=== PATIENT | male | born 1960 | race Caucasian/White ===

== ENCOUNTER → 2020-06-28 16:23 | Outpatient (REF) | payer OTHER, SELFPAY | LOC: ANHLAB 16:23 | PROVIDERS: Visit Provider Nurse Practitioner | DX: C44.41 Basal cell carcinoma of skin of scalp and neck (principal) | CPT/HCPCS: 88305 ==

== ENCOUNTER → 2020-08-16 07:56 | Outpatient (REF) | payer OTHER, SELFPAY | LOC: ANHLAB 07:56 | PROVIDERS: Visit Provider Nurse Practitioner | DX: C44.41 Basal cell carcinoma of skin of scalp and neck (principal) | CPT/HCPCS: 88305; 88331 ==

== ENCOUNTER 2022-04-06 01:51 | Day surgery (SDC) | payer OTHER, SELFPAY ==
[2022-03-28 14:19] VITALS: BMI 30.3
--- NOTE | 2022-03-28 14:25 | PC.NURSE ---
Report to the Outpatient Waiting Room, entrance under the green pavilion located off [facility], at time 0600 on date 04/06/22. OR Time: 0730. Time changes happen often and if your time is changed the preop area will call you the afternoon before. - You and your visitor will be asked to self-screen and do not enter if you have any COVID symptoms. - Only one visitor and NO children visitors are allowed at this time. - The patient visitor is requested to leave or wait in car when not with patient due to restrictions. - A mask is required within the hospital. Patients may have clear liquids (water, carbonated beverages, clear teas, apple juice) until 3 hours prior to surgery with a maximum of 20 ounces. - No food from midnight until time of surgery Take the following medications with a SIP of water the morning of surgery: METOPROLOL Medications to discontinue per physician: VITAMINS Date to take last dose: 04/02/22 Please no make-up, nail armenian, hairspray, perfume, deodorant, or body powder the day of surgery. No jewelry (including any body piercings) or valuables the day of surgery, leave them at home. Please take a shower or bath the night before, or the morning of, surgery with an antibacterial soap. Wear comfortable, loose fitting clothing. - Jewelry must be removed prior to entering the operating room. Rings and piercings that are not removed may be cut off. - The hospital will not accept responsibility for valuables. - Please leave all valuables, including medications, at home the day of surgery. If you are going home after surgery, a licensed front end loader driver must drive you home. - NO public transportation without another adult. - We recommend that an adult stay with you for 24 hours following discharge. - We also recommend that you do not drive, make important decision, drink alcoholic beverages, or take any drugs that were not prescribed by your health care provider for at least 24 hours after your discharge time. Follow any additional instructions given to you from your surgeon. If you or anyone in your household have experienced Covid symptoms in the past week, please notify your surgeon or the nurse liaison at the phone number below for possible testing. Telephone instructions given to PT - GIRMA DANIELS and asked if any additional questions and then verbalized understanding. Patient advised to call surgeon office or pre surgery nurse liaison [phone] if any additional questions.
[2022-04-06 06:46] VITALS: BP 138/85; PULSE 62; RESP 16; TEMP 36.1; O2SAT 99
--- NOTE | 2022-04-06 06:52 | WPDANESEPPF ---
Anes - Initial Pre Proc Eval Procedure: Operation Date: 04/06/22 07:30 Proposed Procedures p Right Palmar Fasciectomy - Alejo Leon MD Date/Time: 04/06/22 06:52 Surgeon: Alejo Leon MD Pre Op Diagnosis: Dupuytren contractures rt 4th and 5th ray of palm Patient Data Age: 61 Gender: M Height: 1.85 m Weight: 114 kg Last Vital Signs Temp 36.1 C L 04/06/22 06:46 Pulse 62 04/06/22 06:46 Resp 16 04/06/22 06:46 BP 138/85 04/06/22 06:46 Pulse Ox 99 04/06/22 06:46 O2 Del Method Room Air 04/06/22 06:46 Allergies Allergy/AdvReac Type Severity Reaction Status Date / Time No Known Allergies Allergy Verified 04/06/22 06:23 Home Medications Medication Instructions Recorded Confirmed Type mecobalamin (vitamin B12) 1,000 1,000 mcg PO DAILY 07/25/21 04/06/22 History mcg chewable tablet simvastatin 20 mg PO HS 12/06/21 04/06/22 History aspirin 81 mg chewable tablet 81 mg PO DAILY 01/09/22 04/06/22 History lisinopril 20 mg tablet 20 mg PO DAILY #90 tabs 01/09/22 04/06/22 Rx omega-3 fatty acids [Fish Oil] 1 tablet PO DAILY 01/09/22 04/06/22 History metoprolol succinate 50 mg 50 mg PO DAILY #90 tabs 04/03/22 04/06/22 Rx tablet,extended release 24 hr Patient hx anesthesia problems: none Family hx anesthesia problems: none Results Review: All pre-operative results and documents have been reviewed as part of the pre-operative evaluation. [facility], [facility] Past Medical History Medical History B12 deficiency BMI 31.0-31.9,adult BMI 33.0-33.9,adult Colon cancer screening Dupuytrens contracture Elevated fasting glucose Encounter to establish care History of COVID-19 Hyperlipidemia Hypertension Wellness examination Surgical History Surgical History (Updated 04/06/22 @ 06:53 by Hunter Farnsworth MD) H/O colonoscopy Family History Family History Father Lung cancer Mother Cerebrovascular accident Sibling Heart disease Social History Social History Smoking status: Never smoker Alcohol intake: current Drinks per week: 8 Alcohol use details: BEER Substance use: never Substance use type: does not use Living arrangements: with family Spiritual care concerns: No Anes - Eval Final PreProcedure Day of Procedure 04/06/22 06:52 Patient weight: obese Heart: regular rate and rhythm Lungs: clear to auscultation Airway: Mallampati scale class II Neurological: alert and oriented Last oral intake: >/= 8 hours ASA classification: III Emergent: no Anesthetic plan: proceed Anesthesia type and monitoring: general GIVS and standard monitoring Results Review: All pre-operative results and documents have been reviewed as part of the pre-operative evaluation. Informed Consent: The patient's anesthetic plan and its attendant risks and benefits were discussed with the patient/family/POA. Questions were solicited and answers provided to the satisfaction of the patient/family/POA.
[2022-04-06] MEDS: LACTATED RINGERS 1,000 ML 30 ML IV CONT (06:53)
--- NOTE | 2022-04-06 07:11 | WPDHPUPDATE1 ---
History and Physical Update Update Date/Time: 04/06/22 07:11 History and Physical has been reviewed, including an updated exam of the patient. There are NO changes in the patient's condition. Risks, benefits, and alternatives have been discussed and questions answered. Patient agrees to proceed with procedure.
[2022-04-06 08:40] VITALS: BP 116/66; PULSE 61; RESP 16; O2SAT 96
[2022-04-06 09:10] VITALS: BP 143/84; PULSE 53; RESP 16
--- NOTE | 2022-04-06 15:17 | P.OP_ITS ---
Procedure Note - Detailed Date of Procedure 04/06/22 Pre-op Diagnosis Dupuytren contractures rt 4th and 5th ray of palm Post-op Diagnosis Same Procedure Performed Right partial palmar fasciectomy Surgeon Alejo Leon MD [employer] [facility] [place] Procedure The patient's right ulnar palm region was marked for the fasciectomy with his a consent in the holding area. He was taken to the operating room where he was placed supine on the operating table. A time-out was held and confirmed. He was given IV sedation. The extremity was prepped and draped in usual fashion. The site was marked for the incisions to be used. The area was widely infiltrated with 2% lidocaine with epinephrine. The extremity was exsanguinated with an Esmarch tourniquet. The tourniquet was inflated 250 mmHg. The incisions were made across the distal palmar crease with that back cut towards the proximal phalanx on the small finger. A nodule resided there. The skin flaps were elevated in all directions the common and digital nerves were identified to the small finger and the ring finger. The largest cord was to the small finger and this was exposed and isolated. It was cut proximally and pulled out with traction and blunt dissection for the most part to remove the entire mass. A similar dissection on a smaller scale was carried out just in the palm to the 4th ray there was no dissection into the finger on the 4th.. The metacarpophalangeal joint and proximal interphalangeal joints could be fully extended or passively hyperextended without difficulty. The tourniquet was released and the wound was closed with a running 4-0 nylon suture. A bulky bandage was applied some additiona 2% lidocaine with epinephrine was infiltrated in the wound area. Patient was discharged from the operating room in stable condition. A prescription for hydrocodone 5/325 6. Was sent to his pharmacy. Estimated Blood Loss 5 Drains No Packing No Pathology None sent Complications No immediate complications Condition Stable Disposition Same day
== END 2022-04-06 09:25 | disposition home or self-care (01) ==
PROVIDERS: PCP Nurse Practitioner Family; Visit Provider Plastic Surgery
PROC: (CPT 26045; principal; 2022-04-06 07:30)
DX: M72.0 Palmar fascial fibromatosis [Dupuytren] (principal); I10 Essential (primary) hypertension; E78.5 Hyperlipidemia, unspecified; E66.9 Obesity, unspecified; Z68.33 Body mass index [BMI] 33.0-33.9, adult; Z79.82 Long term (current) use of aspirin
CPT/HCPCS: 26121; A9270; J2704; J3010; J7120

== ENCOUNTER 2023-01-15 01:34 | Day surgery (SDC) | payer OTHER, SELFPAY ==
[2023-01-03 08:54] VITALS: BMI 32.0
--- NOTE | 2023-01-12 17:20 | P.PNAN_ITS ---
Anes - Eval Pre Procedure Procedure: Operation Date: 01/15/23 07:30 Proposed Procedures p Screening Colonoscopy - Regino Amin MD Date/Time: 01/12/23 17:20 Pre Op Diagnosis: neoplasm screening Patient Data Age: 62 Gender: M Height: 1.83 m Weight: 107 kg Allergies Allergy/AdvReac Type Severity Reaction Status Date / Time lisinopril AdvReac Cough Verified 01/03/23 08:55 Home Medications Medication Instructions Recorded Confirmed Type mecobalamin (vitamin B12) 1,000 1,000 mcg PO DAILY 07/25/21 01/03/23 History mcg chewable tablet aspirin 81 mg chewable tablet 81 mg PO DAILY 01/09/22 01/03/23 History omega-3 fatty acids [Fish Oil] 1 tablet PO DAILY 01/09/22 01/03/23 History atorvastatin 20 mg tablet 20 mg PO DAILY #90 tabs 06/27/22 01/03/23 Rx irbesartan 300 mg tablet 300 mg PO DAILY #90 tabs 08/21/22 01/03/23 Rx metoprolol succinate 50 mg 50 mg PO DAILY #90 tabs 08/21/22 01/03/23 Rx tablet,extended release 24 hr sodium,potassium,mag sulfates 17.5 See Rx Instructions PO .COMPLEX 09/07/22 Rx gram-3.13 gram-1.6 gram oral soln #354 mL (Suprep Bowel Prep Kit) Patient hx anesthesia problems: none Family hx anesthesia problems: none Results Review: All pre-operative results and documents have been reviewed as part of the pre- operative evaluation. [facility] Past Medical History Medical History B12 deficiency BMI 31.0-31.9,adult BMI 33.0-33.9,adult Colon cancer screening Dupuytrens contracture Elevated fasting glucose Encounter to establish care History of COVID-19 Hyperlipidemia Hypertension Prediabetes Protein in urine Wellness examination Surgical History Surgical History H/O colonoscopy Family History Family History Father Lung cancer Mother Cerebrovascular accident Sibling Heart disease Social History Social History Smoking status: Never smoker Alcohol intake: current Drinks per week: 8 Alcohol use details: beer Substance use: never Substance use type: does not use Lack of Transportation: No Lack of Food: Never True Current Housing: I Have Housing Concerned About Future Housing: No Difficulty Paying Gas/Electric Bills: No Difficulty Paying for Meds: No Currently Unemployed: No Education: Master's Degree or Higher Difficulty w/ Childcare or Family Care: No Living arrangements: with family Spiritual care concerns: No Exam Day of Procedure 01/12/23 17:20
[2023-01-15 06:19] VITALS: BP 127/77; PULSE 65; RESP 20; TEMP 35.9; O2SAT 98
[2023-01-15] MEDS: LACTATED RINGERS 1,000 ML 150 ML IV CONT (06:27)
--- NOTE | 2023-01-15 07:06 | P.PNAN_ITS ---
Anes - Eval Final PreProcedure Day of Procedure 01/15/23 07:06 Patient weight: obese Heart: regular rate and rhythm Lungs: clear to auscultation Airway: Mallampati scale class II Neurological: alert and oriented Last oral intake: >/= 8 hours ASA classification: III Emergent: no Anesthetic plan: proceed Anesthesia type and monitoring: general GIVS and standard monitoring Results Review: All pre-operative results and documents have been reviewed as part of the pre- operative evaluation. Informed Consent: The patient's anesthetic plan and its attendant risks and benefits were discussed with the patient/family/POA. Questions were solicited and answers provided to the satisfaction of the patient/family/POA.
--- NOTE | 2023-01-15 07:54 | PM.HPGS ---
History of Present Illness History of Present Illness Consent: Risks, benefits, and alternatives have been discussed and questions answered. Patient agrees to proceed with procedure. Chief complaint: neoplasm screening Narrative: Kylre James is a 62 year old male Presents for screening colonoscopy. Patient's current weight appetite and bowel movements are normal. Patient denies abdominal pain. He has had no bleeding. Family history noncontributory. Previous colonoscopy in 2013 was unremarkable. Review of Systems Review of Systems: Review of systems noncontributory. [facility] Past Medical History Medical History B12 deficiency BMI 31.0-31.9,adult BMI 33.0-33.9,adult Colon cancer screening Dupuytrens contracture Elevated fasting glucose Encounter to establish care History of COVID-19 Hyperlipidemia Hypertension Prediabetes Protein in urine Wellness examination Surgical History Surgical History H/O colonoscopy Family History Family History Father Lung cancer Mother Cerebrovascular accident Sibling Heart disease Social History Social History Smoking status: Never smoker Alcohol intake: current Drinks per week: 8 Alcohol use details: beer Substance use: never Substance use type: does not use Lack of Transportation: No Lack of Food: Never True Current Housing: I Have Housing Concerned About Future Housing: No Difficulty Paying Gas/Electric Bills: No Difficulty Paying for Meds: No Currently Unemployed: No Education: Master's Degree or Higher Difficulty w/ Childcare or Family Care: No Living arrangements: with family Spiritual care concerns: No Meds Home Medications and Allergies Home Medications Medication Instructions Recorded Confirmed Type mecobalamin (vitamin B12) 1,000 1,000 mcg PO DAILY 07/25/21 01/15/23 History mcg chewable tablet aspirin 81 mg chewable tablet 81 mg PO DAILY 01/09/22 01/15/23 History omega-3 fatty acids [Fish Oil] 1 tablet PO DAILY 01/09/22 01/15/23 History atorvastatin 20 mg tablet 20 mg PO DAILY #90 tabs 06/27/22 01/15/23 Rx irbesartan 300 mg tablet 300 mg PO DAILY #90 tabs 08/21/22 01/15/23 Rx metoprolol succinate 50 mg 50 mg PO DAILY #90 tabs 08/21/22 01/15/23 Rx tablet,extended release 24 hr Allergies Allergy/AdvReac Type Severity Reaction Status Date / Time lisinopril AdvReac Cough Verified 01/15/23 06:18 Vital Signs Vital Signs - 24 hr 01/15/23 06:19 Temperature 96.7 F L Pulse Rate 65 Respiratory Rate 20 Blood Pressure 127/77 Pulse Oximetry 98 Oxygen Delivery Room Air Exam Narrative: Physical exam reveals patient to be alert. Vital signs stable. HEENT exam is unremarkable. Patient is anicteric. Lungs are clear to auscultation and percussion. Heart is without murmur or extra sounds. Abdomen bowel sounds are present soft nontender with no organomegaly. Digital external rectal exam is normal. Assessment and Plan Assessment and plan (1) Colon cancer screening: Code(s): Z12.11 - Encounter for screening for malignant neoplasm of colon Status: Acute Assessment and Plan: Patient presents today for colon cancer screening colonoscopy. Patient appears be at average risk for colon polyps. Further recommendations may be given after endoscopy.
[2023-01-15 07:57] VITALS: BP 121/77; PULSE 65; RESP 15; O2SAT 92
[2023-01-15 08:07] VITALS: BP 114/78; PULSE 67; RESP 20; O2SAT 97
[2023-01-15 08:17] VITALS: BP 116/76; PULSE 62; RESP 20; O2SAT 97
== END 2023-01-15 08:23 | disposition home or self-care (01) ==
PROVIDERS: PCP Nurse Practitioner Family; Visit Provider Internal Medicine Gastroenterology
PROC: 0DJD8ZZ Inspection of Lower Intestinal Tract, Via Natural or Artificial Opening Endoscopic (ICD-10-PCS; CPT 45378; principal; 2023-01-15 07:30)
DX: Z12.11 Encounter for screening for malignant neoplasm of colon (principal); D12.5 Benign neoplasm of sigmoid colon; K64.8 Other hemorrhoids; E53.8 Deficiency of other specified B group vitamins; E78.5 Hyperlipidemia, unspecified; I10 Essential (primary) hypertension; R73.03 Prediabetes; E66.9 Obesity, unspecified; Z68.34 Body mass index [BMI] 34.0-34.9, adult; Z79.82 Long term (current) use of aspirin
CPT/HCPCS: 45385; 88305; J2704; J7120